=== PATIENT | female | born 1930 | race Caucasian/White ===

== ENCOUNTER 2021-09-20 11:06 | Emergency (ER) | payer MEDICARE, BC ==
[2021-09-20 11:34] VITALS: TEMP 97.9
--- NOTE | 2021-09-20 13:13 | XR ---
EXAMINATION TYPE: XR chest 2V DATE OF EXAM: 09/20/2021 COMPARISON: None HISTORY: 89-year-old female with cough TECHNIQUE: PA and lateral views FINDINGS: Enlarged cardiac/pericardiac silhouette. Interstitial prominence. Small effusions and patchy left bas ilar opacity. IMPRESSION: Moderate enlargement of the cardiac/pericardiac silhouette. This could represent pronounced cardiomeg michelle and/or underlying pericardial effusion. Small pleural effusions with adjacent atelectasis and/or consolidation.
[2021-09-20 14:15] VITALS: RESP 16
[2021-09-20 14:37] LABS: Albumin 4.2 g/dL (3.5-5.0); Calcium 9.6 mg/dL (8.4-10.2); Magnesium 1.8 mg/dL (1.6-2.3); Potassium 4.6 mmol/L (3.5-5.1); Total Bilirubin 1.3 mg/dL (0.2-1.3)
[2021-09-20 14:58] LABS: HCT 43.7 % (34.0-46.0); HGB 14.2 gm/dL (11.4-16.0); MCH 32.6 pg (25.0-35.0); MCHC 32.5 g/dL (31.0-37.0); MCV 100.4 fL (80.0-100.0); Macrocytosis Slight; Mean Platelet Volume 8.2; Platelet Count 197 k/uL (150-450); RBC 4.35 m/uL (3.80-5.40); RDW 15.4 % (11.5-15.5); WBC 6.4 k/uL (3.8-10.6)
[2021-09-20 15:31] LABS: Crenated RBC Present; Lymphocytes # (M) 2.05 k/uL (1.0-4.8); Monocytes # (M) 0.51 k/uL (0-1.0); Neutrophils # (M) 3.84 k/uL (1.3-7.7); Neutrophils % (M) 60 %; Nucleated Red Blood Cells 0 /100 WBC (0-0); Reactive Lymphocytes Present; Total Cells Counted 100
--- NOTE | 2021-09-20 15:38 | ED ---
URI HPI - General Chief Complaint: Upper Respiratory Infection Stated Complaint: covid+, bam infusion Time Seen by Provider: 09/20/21 13:43 Source: patient, family, RN notes reviewed Mode of arrival: wheelchair Limitations: no limitations - History of Present Illness Initial Comments: BA-year-old female with history of CVA who is brought in by daughter after being diagnosed with being tired having difficulty breathing. Patient does have peripheral edema she recently had her Lasix dosage lowered from twice a day to once a day. No fevers chills nausea vomiting sweats just tired for last couple days. Patient is hard of hearing. MD Complaint: other - Related Data Home Medications Medication Instructions Recorded Confirmed Acetaminophen Tab [Tylenol Tab] 500 mg PO Q6HR PRN 09/20/21 09/20/21 Apixaban [Eliquis] 2.5 mg PO BID@08,199909/20/21 09/20/21 Atorvastatin [Lipitor] 40 mg PO HS@199909/20/21 09/20/21 Bacitracin Ointment 1 applic TOPICAL TID PRN 09/20/21 09/20/21 Furosemide [Lasix] 40 mg PO DAILY@0800 09/20/21 09/20/21 Losartan Potassium [Cozaar] 25 mg PO DAILY@0800 09/20/21 09/20/21 Magnesium Hydroxide [Milk of 2,400 mg PO Q4H PRN 09/20/21 09/20/21 Magnesia] Magnesium Oxide [Mag-Ox] 400 mg PO DAILY@0800 09/20/21 09/20/21 Metoprolol Tartrate [Lopressor] 100 mg PO DAILY@0800 09/20/21 09/20/21 Polyethylene Glycol 3350 [Miralax] 17 gm PO DAILY@0800 09/20/21 09/20/21 Potassium Chloride ER [K-Dur 10] 10 meq PO DAILY@0800 09/20/21 09/20/21 Sennosides/Docusate Sodium 1 tab PO BID PRN 09/20/21 09/20/21 [Senna-S 8.6-50 mg Tablet] amLODIPine [Norvasc] 10 mg PO DAILY@0800 09/20/21 09/20/21 Previous Rx's Medication Instructions Recorded Furosemide [Lasix] 40 mg PO BID #14 tablet 09/20/21 Potassium Chloride ER [K-Dur 20] 20 meq PO DAILY #7 tab 09/20/21 Allergies Allergy/AdvReac Type Severity Reaction Status Date / Time No Known Allergies Allergy Verified 09/20/21 15:20 Review of Systems ROS Statement: Those systems with pertinent positive or pertinent negative responses have been documented in the HPI. ROS Other: All systems not noted in ROS Statement are negative. Past Medical History Past Medical History: Atrial Flutter, CVA/TIA, Hyperlipidemia History of Any Multi-Drug Resistant Organisms: None Reported Past Surgical History: No Surgical Hx Reported Additional Past Surgical History / Comment(s): cataracts Past Psychological History: No Psychological Hx Reported Smoking Status: Never smoker Past Alcohol Use History: None Reported Past Drug Use History: None Reported General Exam - General Exam Comments Initial Comments: This is a well-developed asthenic appearing female who is awake alert oriented 3 Limitations: no limitations General appearance: alert, in no apparent distress Head exam: Present: atraumatic, normocephalic, normal inspection Eye exam: Present: normal appearance, PERRL, EOMI. Absent: scleral icterus, conjunctival injection, periorbital swelling ENT exam: Present: normal exam, mucous membranes moist Neck exam: Present: normal inspection, full ROM, other. Absent: tenderness, meningismus, lymphadenopathy Respiratory exam: Present: rales, decreased breath sounds (No stridor JVD or bruits). Absent: respiratory distress, wheezes, rhonchi, stridor Cardiovascular Exam: Present: regular rate, normal rhythm, normal heart sounds. Absent: systolic murmur, diastolic murmur, rubs, gallop, clicks GI/Abdominal exam: Present: soft, normal bowel sounds. Absent: distended, tenderness, guarding, rebound, rigid Extremities exam: Present: full ROM, normal capillary refill, pedal edema. Absent: tenderness, joint swelling, calf tenderness Back exam: Present: normal inspection Neurological exam: Present: alert, oriented X3, CN II-XII intact Psychiatric exam: Present: normal affect, normal mood Skin exam: Present: warm, dry, intact, normal color. Absent: rash Course Vital Signs 09/20/21 09/20/21 11:27 14:12 Temperature 97.9 F Pulse Rate 59 L 55 L Respiratory 20 16 Rate Blood Pressure 125/63 154/68 O2 Sat by Pulse 95 96 Oximetry Medical Decision Making - Medical Decision Making I did discuss the findings with the patient and family patient will be discharged home the patient will be an additional Lasix she was on 40 mg twice a day be more she also place an extra potassium for 1 week and follow-up with her doctor we did discuss return parameters. - Lab Data Result diagrams: 09/20/21 14:18 09/20/21 14:18 Lab Results 09/20/21 09/20/21 09/20/21 Range/Units 11:35 14:18 14:18 WBC 6.4 (3.8-10.6) k/uL RBC 4.35 (3.80-5.40) m/uL Hgb 14.2 (11.4-16.0) gm/dL Hct 43.7 (34.0-46.0) % MCV 100.4 H (80.0-100.0) fL MCH 32.6 (25.0-35.0) pg MCHC 32.5 (31.0-37.0) g/dL RDW 15.4 (11.5-15.5) % Plt Count 197 (150-450) k/uL MPV 8.2 Neutrophils % (Manual) 60 % Lymphocytes % (Manual) 32 % Monocytes % (Manual) 8 % Neutrophils # (Manual) 3.84 (1.3-7.7) k/uL Lymphocytes # (Manual) 2.05 (1.0-4.8) k/uL Monocytes # (Manual) 0.51 (0-1.0) k/uL Nucleated RBCs 0 (0-0) /100 WBC Manual Slide Review Performed Reactive Lymphocytes Present Macrocytosis Slight Crenated Cell Present Sodium 136 L (137-145) mmol/L Potassium 4.6 (3.5-5.1) mmol/L Chloride 104 (98-107) mmol/L Carbon Dioxide 21 L (22-30) mmol/L Anion Gap 11 mmol/L BUN 16 (7-17) mg/dL Creatinine 0.73 (0.52-1.04) mg/dL Est GFR (CKD-EPI)AfAm 85 (>60 ml/min/1.73 sqM) Est GFR (CKD-EPI)NonAf 73 (>60 ml/min/1.73 sqM) Glucose 106 H (74-99) mg/dL Calcium 9.6 (8.4-10.2) mg/dL Magnesium 1.8 (1.6-2.3) mg/dL Total Bilirubin 1.3 (0.2-1.3) mg/dL AST 36 (14-36) U/L ALT 14 (4-34) U/L Alkaline Phosphatase 73 (38-126) U/L Creatine Kinase 76 (30-135) U/L NT-Pro-B Natriuret Pep pg/mL Total Protein 8.0 (6.3-8.2) g/dL Albumin 4.2 (3.5-5.0) g/dL Coronavirus (PCR) Not Detected (Not Detectd) Influenza Type A (PCR) (Not Detectd) Influenza Type B (PCR) (Not Detectd) RSV (PCR) (Not Detectd) SARS-CoV-2 (PCR) (Not Detectd) 09/20/21 09/20/21 Range/Units 14:18 14:18 WBC (3.8-10.6) k/uL RBC (3.80-5.40) m/uL Hgb (11.4-16.0) gm/dL Hct (34.0-46.0) % MCV (80.0-100.0) fL MCH (25.0-35.0) pg MCHC (31.0-37.0) g/dL RDW (11.5-15.5) % Plt Count (150-450) k/uL MPV Neutrophils % (Manual) % Lymphocytes % (Manual) % Monocytes % (Manual) % Neutrophils # (Manual) (1.3-7.7) k/uL Lymphocytes # (Manual) (1.0-4.8) k/uL Monocytes # (Manual) (0-1.0) k/uL Nucleated RBCs (0-0) /100 WBC Manual Slide Review Reactive Lymphocytes Macrocytosis Crenated Cell Sodium (137-145) mmol/L Potassium (3.5-5.1) mmol/L Chloride (98-107) mmol/L Carbon Dioxide (22-30) mmol/L Anion Gap mmol/L BUN (7-17) mg/dL Creatinine (0.52-1.04) mg/dL Est GFR (CKD-EPI)AfAm (>60 ml/min/1.73 sqM) Est GFR (CKD-EPI)NonAf (>60 ml/min/1.73 sqM) Glucose (74-99) mg/dL Calcium (8.4-10.2) mg/dL Magnesium (1.6-2.3) mg/dL Total Bilirubin (0.2-1.3) mg/dL AST (14-36) U/L ALT (4-34) U/L Alkaline Phosphatase (38-126) U/L Creatine Kinase (30-135) U/L NT-Pro-B Natriuret Pep 2790 pg/mL Total Protein (6.3-8.2) g/dL Albumin (3.5-5.0) g/dL Coronavirus (PCR) (Not Detectd) Influenza Type A (PCR) Not Detected (Not Detectd) Influenza Type B (PCR) Not Detected (Not Detectd) RSV (PCR) Not Detected (Not Detectd) SARS-CoV-2 (PCR) Not Detected (Not Detectd) - Radiology Data Radiology results: report reviewed, image reviewed Disposition Clinical Impression: Congestive heart failure (CHF) Disposition: HOME SELF-CARE Condition: Stable Prescriptions: Potassium Chloride ER [K-Dur 20] 20 meq PO DAILY #7 tab Furosemide [Lasix] 40 mg PO BID #14 tablet Is patient prescribed a controlled substance at d/c from ED?: No Referrals: Nonstaff,Physician [Primary Care Provider] - 1-2 days
[2021-09-20 16:21] VITALS: BP 136/51; PULSE 58
== END 2021-09-20 16:21 | disposition home or self-care (01) ==
LOC: EC 11:06
DX: I50.9 Heart failure, unspecified (principal); E78.5 Hyperlipidemia, unspecified; Z86.73 Personal history of transient ischemic attack (TIA), and cerebral infarction without residual deficits; Z79.899 Other long term (current) drug therapy; Z79.01 Long term (current) use of anticoagulants; Z20.822 Contact with and (suspected) exposure to COVID-19
CPT/HCPCS: 36415; 71046; 80053; 82550; 83735; 83880; 85025; 87635; 87636; 99283